=== PATIENT | male | born 2000 | race African-American/Black ===

== ENCOUNTER 2022-02-25 01:47 | Emergency (ER) | payer OTHER ==
[~2022-02-25] VITALS: Ht 190.5 cm; Wt 68.0 kg
[2022-02-25 01:58] VITALS: BP 126/86
[2022-02-25] MEDS ORDERED: KETOROLAC 60MG/2ML VIAL IM ONE (09:00)
[2022-02-25] MEDS ORDERED: LORAZEPAM 0.5MG TABLET PO ONE (09:00)
[2022-02-25] MEDS ORDERED: IBUP-2029 MT (09:59)
== END 2022-02-25 10:48 | disposition home or self-care (01) ==
LOC: ER 01:47
DX: R07.81 Pleurodynia (principal); M25.572 Pain in left ankle and joints of left foot
CPT/HCPCS: 71101; 73600; 96372; 99284; J1885